=== PATIENT | male | born 1975 | race Caucasian/White ===

== ENCOUNTER 2024-08-20 06:39 | Observation (INO) ==
[~2024-08-20 06:39] MED LIST: Ampicillin ADVAN 2 GM in NS 0.9% 100 ML IVPB ONE; Gentamicin ADULT 400 MG in NS 0.9% 100 ml BAG 100 ML IVPB ONE; Metoclopramide 5 MG/ML VIAL (10 mg) IV PRN; NS 0.45% 1000 ml BAG 1,000 ML IV SCH; Naloxone 0.4 mg VIAL 0.4 mg/ml 1 ml VIAL IV PRN; Ondansetron 4 mg VIAL 2 MG/ML 2 ml VIAL IV PRN; fentaNYL 100 mcg/2 ml 50 MCG/ML VIAL IV PRN
[2024-08-20 07:32] LABS: Rapid COVID-19 Molecular Undetected (Undetected)
[2024-08-20] MEDS ORDERED: Ondansetron 4 mg VIAL 2 MG/ML 2 ml VIAL IV PRN (07:33)
[2024-08-20] MEDS ORDERED: fentaNYL 100 mcg/2 ml 50 MCG/ML VIAL ONE (07:54)
[2024-08-20] MEDS ORDERED: Lidocaine 2% PF 5 ML VIAL ONE (07:54)
[2024-08-20] MEDS ORDERED: Ondansetron 4 mg VIAL 2 MG/ML 2 ml VIAL ONE (07:54)
[2024-08-20] MEDS ORDERED: Midazolam 2 mg/2 ml VIAL 1 mg/ml 2 ml VIAL (2 mg) IV SLOW PU ONE (07:54)
[2024-08-20] MEDS ORDERED: Dexamethasone IV 4 MG/ML VIAL 1 ml VIAL IV SLOW PU ONE (07:54)
[2024-08-20] MEDS ORDERED: Dexamethasone IV 4 MG/ML VIAL 1 ml VIAL ONE (07:54)
[2024-08-20] MEDS ORDERED: fentaNYL 100 mcg/2 ml 50 MCG/ML VIAL IV ONE (07:54)
[2024-08-20] MEDS ORDERED: Ondansetron 4 mg VIAL 2 MG/ML 2 ml VIAL IV ONE (07:54)
[2024-08-20] MEDS ORDERED: Propofol 10 MG/ML 20 ML BTL IV ONE (07:54)
[2024-08-20] MEDS ORDERED: Midazolam 2 mg/2 ml VIAL 1 mg/ml 2 ml VIAL (2 mg) ONE (07:54)
[2024-08-20] MEDS ORDERED: Propofol 10 MG/ML 20 ML BTL ONE (07:54)
[2024-08-20] MEDS ORDERED: Lidocaine 2% PF 5 ML VIAL INJ ONE (07:54)
[2024-08-20] MEDS ORDERED: Phenylephrine IV 10 MG/ML 1 ml VIAL ONE (08:53)
[2024-08-20] MEDS ORDERED: Phenylephrine IV 10 MG/ML 1 ml VIAL IV ONE (08:53)
[2024-08-20] MEDS ORDERED: Furosemide 20 mg/2 ml IV VIAL IV SLOW PU ONE (09:16)
[2024-08-20] MEDS ORDERED: Furosemide 20 mg/2 ml IV VIAL ONE (09:16)
[2024-08-20] MEDS: NS 0.9% 1000 ml BAG 1,000 ML IV SCH (12:15)
[2024-08-20] MEDS: Lactated Ringers 1000 ml BAG 1,000 ML IV SCH (12:36)
[2024-08-20] MEDS: Acetaminophen IV 1 GM/100ML 1,000 MG/100 ML BAG IV ONE (12:37)
[2024-08-20] MEDS: Scopolamine 1 mg/72hr PATCH TRANSDERM ONE (12:37)
[2024-08-20] MEDS: Buffered Lidocaine 1% SYRIN 1 ml INTRADERM ONE (12:37)
[2024-08-20] MEDS: Gentamicin ADULT 400 MG in NS 0.9% 100 ml BAG 100 ML IVPB ONE (12:48)
[2024-08-20] MEDS: Neomycin/Polym/Bacit TOP OINT 15 GM TOPICAL SCH (12:48)
[2024-08-20] MEDS: Ampicillin ADVAN 2 GM in NS 0.9% 100 ML IVPB ONE (12:48)
[2024-08-20] MEDS: Magnesium Hydroxide LIQ 30 ML UDC PO SCH (12:59)
[2024-08-20] MEDS: Ondansetron 4 mg VIAL 2 MG/ML 2 ml VIAL IV PRN (20:04)
[2024-08-21] MEDS ORDERED: Neomycin/Polym/Bacit TOP OINT 15 GM TOPICAL SCH (09:00)
[2024-08-21] MEDS ORDERED: Lidocaine 4% GEL 10 GM TUBE TOPICAL ONE (13:20)
[2024-08-21] MEDS: Lidocaine 4% GEL 10 GM TUBE TOPICAL ONE (13:44)
== END 2024-08-21 16:40 | disposition home or self-care (01) ==
LOC: SSU 06:39 → OR 06:39
PROVIDERS: ADMIT Urology; ATTEND Urology